=== PATIENT | female | born 1960 | race Caucasian/White ===

== ENCOUNTER 2021-07-04 16:37 | Inpatient (IN) ==
[2021-07-04 17:15] LABS: Basophils # 0.1 10*3/uL (0.0-0.2); Basophils % 0.9 % (0.0-0.8); Eosinophils # 0.5 10*3/uL (0.0-0.87); Eosinophils % 8.4 % (0.00-10.9); Hematocrit 35.5 VOL% (35.7-47.0); Hemoglobin 11.4 GM/DL (12.0-16.0); Immature Granulocytes % 0.3 %; Immature Granulocytes Absolute 0.02 #; Lymphocytes # 2.5 10*3/uL (1.4-4.0); Lymphocytes % 38.4 % (21.3-54.2); Mean Corpuscular HGB Conc 32.1 GM/DL (32-36); Mean Corpuscular Volume 92.9 FL (87-102); Mean Platelet Volume 9.5 FL (9.6-12.0); Monocytes % 8.1 % (1.7-12.7); Neutrophils % 43.9 % (38.7-73.9); Platelet Count 196 T/CUMM (130-400); Red Blood Count 3.82 MC/CUMM (3.8-5.5); Red Cell Distribution Width 13.2 % (9.3-17.3); White Blood Count 6.4 T/CUMM (4-12)
[2021-07-04] MEDS ORDERED: SODIUM CHLORIDE 0.9% 1,000 ML IV STA (17:29)
[2021-07-04] MEDS ORDERED: ALBUTEROL/IPRATROPIUM 3 ML NEB RESP TX STA (17:30)
[2021-07-04 17:35] LABS: Alanine Aminotransferase 18 U/L (13-56); Albumin 3.3 G/DL (3.4-5.0); Alkaline Phosphatase 65 U/L (45-117); Aspartate Amino Transferase 18 U/L (0-37); Bilirubin,Total < 0.39 MG/DL (0.20-1.00); Blood Urea Nitrogen 11 MG/DL (7-18); Calcium 8.1 MG/DL (8.5-10.1); Carbon Dioxide 29 MMOL/L (21-32); Estimated Glom Filtration Rate 81 ML/MIN; Glucose 201 MG/DL (74-106); Osmolality,Calculated 281.5 MOS/KG (273-304); Potassium 3.6 MMOL/L (3.5-5.1); Sodium 139 MMOL/L (136-145); Total Protein 6.3 G/DL (6.4-8.2)
[2021-07-04 17:40] LABS: PT Patient Result 11.4 SECS (10.5-12.0); Partial Thromboplastin Time 25.8 SECS (23.8-32.1)
[2021-07-04 17:52] LABS: Bilirubin,Urine Negative (Negative); Blood, Urine Negative (Negative); Glucose,Urine (UA) Negative (Negative); Hyaline Casts,Urine 1 /LPF (0-3); Ketones,Urine Negative (Negative); Mucus,Urine Occasional /LPF (Occasional); Nitrite,Urine Negative (Negative); Protein,Urine Negative; RBC,Urine 3 /HPF (0-4); Urine Appearance CLEAR (Clear); Urine Color Straw (Yellow); Urine Specific Gravity 1.008 (1.001-1.035); Urine Urobilinogen < 2.0 EU/DL (0.2-1.0)
[2021-07-04 18:04] LABS: Barbiturates Screen,Urine Negative (Negative); Benzodiazepines Screen,Urine Positive (Negative); Cannabinoid Screen,Urine Negative (Negative); Opiate Screen,Urine Negative (Negative); Phencyclidine Screen,Urine Negative (Negative)
[2021-07-04 18:06] LABS: ABG Base Excess 3.4 MMOL/L (-2.5-2.5); ABG HCO3 27.4 MMOL/L (20-26); ABG Oxygen Saturation 93.7 % (95-100); ABG PCO2 58.3 MM HG (35-48); ABG PH 7.331 (7.35-7.45); ABG PO2 73.3 MM HG (80-95); ABG TCO2 27.9 MMOL/L (23-27)
[2021-07-04] MEDS ORDERED: ZALEPLON 5 MG CAPSULE PO PRN (19:33)
[2021-07-04] MEDS ORDERED: ACETAMINOPHEN 325 MG TABLET PO PRN (19:33)
[2021-07-04] MEDS ORDERED: ONDANSETRON 4 MG/2 ML VIAL IV PRN (19:33)
[2021-07-04] MEDS ORDERED: PROMETHAZINE 25 MG TABLET PO PRN (19:43)
[2021-07-04] MEDS ORDERED: ENOXAPARIN 40 MG/0.4 ML SYRINGE SUBCUT SCH (20:00)
[2021-07-04] MEDS ORDERED: GLUCAGON 1 MG VIAL IM PRN (21:00)
[2021-07-04] MEDS ORDERED: DEXTROSE 50% 25 GM/50 ML VIAL IV PRN (21:00)
[2021-07-04] MEDS: INSULIN REGULAR 100 UNIT/ML SUBCUT SCH (21:25)
[2021-07-04] MEDS: METOPROLOL TARTRATE 50 MG TABLET PO SCH (21:43)
[2021-07-04] MEDS: DILTIAZEM 60 MG TABLET PO SCH (21:43)
[2021-07-04] MEDS: ROSUVASTATIN 20 MG TABLET PO SCH (21:43)
[2021-07-04] MEDS: GABAPENTIN 400 MG CAPSULE PO SCH (21:43)
[2021-07-04] MEDS: busPIRone 15 MG TABLET PO SCH (21:43)
[2021-07-04] MEDS: HydrOXYzine PAMOATE 25 MG CAPSULE PO SCH (21:44)
[2021-07-04] MEDS: ALBUTEROL/IPRATROPIUM 3 ML NEB RESP TX SCH (23:42)
[2021-07-05] MEDS: ALBUTEROL/IPRATROPIUM 3 ML NEB RESP TX SCH ×3 (07:31→19:27)
[2021-07-05 09:24] LABS: Basophils # 0.1 10*3/uL (0.0-0.2); Basophils % 0.8 % (0.0-0.8); Eosinophils # 0.4 10*3/uL (0.0-0.87); Eosinophils % 7.1 % (0.00-10.9); Hematocrit 41.3 VOL% (35.7-47.0); Immature Granulocytes % 0.3 %; Immature Granulocytes Absolute 0.02 #; Lymphocytes # 1.9 10*3/uL (1.4-4.0); Lymphocytes % 30.6 % (21.3-54.2); Mean Corpuscular HGB Conc 31.5 GM/DL (32-36); Mean Corpuscular Volume 92.8 FL (87-102); Mean Platelet Volume 9.1 FL (9.6-12.0); Monocytes % 7.7 % (1.7-12.7); Neutrophils % 53.5 % (38.7-73.9); Platelet Count 209 T/CUMM (130-400); Red Blood Count 4.45 MC/CUMM (3.8-5.5); Red Cell Distribution Width 13.2 % (9.3-17.3); White Blood Count 6.2 T/CUMM (4-12)
[2021-07-05] MEDS: INSULIN REGULAR 100 UNIT/ML SUBCUT SCH ×4 (09:30→21:46)
[2021-07-05 09:44] LABS: Albumin 3.7 G/DL (3.4-5.0); Bilirubin,Total 0.5 MG/DL (0.20-1.00); Calcium 9.7 MG/DL (8.5-10.1); Osmolality,Calculated 277.7 MOS/KG (273-304); Potassium 4.5 MMOL/L (3.5-5.1); Total Protein 7.9 G/DL (6.4-8.2)
[2021-07-05] MEDS: METOPROLOL TARTRATE 50 MG TABLET PO SCH ×2 (10:40→21:47)
[2021-07-05] MEDS: ASPIRIN EC 81 MG TABLET PO SCH (10:41)
[2021-07-05] MEDS: busPIRone 15 MG TABLET PO SCH ×3 (10:41→21:47)
[2021-07-05] MEDS: ESCITALOPRAM 10 MG TABLET PO SCH (10:42)
[2021-07-05] MEDS: predniSONE 20 MG TABLET PO SCH (10:42)
[2021-07-05] MEDS: PANTOPRAZOLE 40 MG TABLET PO SCH (10:42)
[2021-07-05] MEDS: HydrOXYzine PAMOATE 25 MG CAPSULE PO SCH ×3 (10:43→21:46)
[2021-07-05] MEDS: ENOXAPARIN 40 MG/0.4 ML SYRINGE SUBCUT SCH (10:49)
[2021-07-05] MEDS: GABAPENTIN 400 MG CAPSULE PO SCH ×3 (10:49→21:47)
[2021-07-05] MEDS: NON-FORMULARY MEDICATION INH SCH (10:50)
[2021-07-05] MEDS: DILTIAZEM 60 MG TABLET PO SCH ×2 (11:01→21:46)
[2021-07-05] MEDS: cephALEXin 500 MG CAPSULE PO SCH ×2 (12:45→21:46)
[2021-07-05] MEDS: NICOTINE 21 MG/24 HR PATCH TRANSDERM SCH (15:14)
[2021-07-05] MEDS: ROSUVASTATIN 20 MG TABLET PO SCH (21:47)
[2021-07-06] MEDS: ALBUTEROL/IPRATROPIUM 3 ML NEB RESP TX SCH ×3 (00:55→13:20)
[2021-07-06] MEDS: NON-FORMULARY MEDICATION INH SCH ×2 (01:14→10:03)
[2021-07-06 04:29] LABS: Basophils % 0.4 % (0.0-0.8); Eosinophils % 0.1 % (0.00-10.9); Hematocrit 34.1 VOL% (35.7-47.0); Hemoglobin 11.2 GM/DL (12.0-16.0); Immature Granulocytes % 0.5 %; Immature Granulocytes Absolute 0.04 #; Lymphocytes # 1.1 10*3/uL (1.4-4.0); Lymphocytes % 14.9 % (21.3-54.2); Mean Corpuscular HGB Conc 32.8 GM/DL (32-36); Mean Corpuscular Volume 91.2 FL (87-102); Mean Platelet Volume 9.8 FL (9.6-12.0); Monocytes % 6.4 % (1.7-12.7); Neutrophils % 77.7 % (38.7-73.9); Platelet Count 215 T/CUMM (130-400); Red Blood Count 3.74 MC/CUMM (3.8-5.5); White Blood Count 7.6 T/CUMM (4-12)
[2021-07-06 04:53] LABS: Calcium 8.7 MG/DL (8.5-10.1); Osmolality,Calculated 281.5 MOS/KG (273-304)
[2021-07-06] MEDS: HydrOXYzine PAMOATE 25 MG CAPSULE PO SCH (08:24)
[2021-07-06] MEDS: PANTOPRAZOLE 40 MG TABLET PO SCH (08:24)
[2021-07-06] MEDS: cephALEXin 500 MG CAPSULE PO SCH (08:24)
[2021-07-06] MEDS: DILTIAZEM 60 MG TABLET PO SCH (08:24)
[2021-07-06] MEDS: predniSONE 20 MG TABLET PO SCH (08:25)
[2021-07-06] MEDS: METOPROLOL TARTRATE 50 MG TABLET PO SCH (08:25)
[2021-07-06] MEDS: ASPIRIN EC 81 MG TABLET PO SCH (08:25)
[2021-07-06] MEDS: GABAPENTIN 400 MG CAPSULE PO SCH (08:25)
[2021-07-06] MEDS: ESCITALOPRAM 10 MG TABLET PO SCH (08:25)
[2021-07-06] MEDS: busPIRone 15 MG TABLET PO SCH (08:25)
[2021-07-06] MEDS: ENOXAPARIN 40 MG/0.4 ML SYRINGE SUBCUT SCH (08:27)
[2021-07-06] MEDS: INSULIN REGULAR 100 UNIT/ML SUBCUT SCH ×2 (08:27→13:35)
[2021-07-06] MEDS: NICOTINE 21 MG/24 HR PATCH TRANSDERM SCH (08:28)
[2021-07-06] MEDS ORDERED: BUDESONIDE/FORMOTEROL 160-4.5 INHALER 6 GM INH SCH (12:00)
[2021-07-06 12:12] VITALS: BP 116/66
== END 2021-07-06 15:10 | disposition home health service (06) | DRG 191 ==
LOC: EDUNIT# → EDBD → N.ED 16:37 → N.EDINP 21:01 → SUATTDRO 21:01 → N.5E 07-05 15:26
PROVIDERS: ADMIT Internal Medicine; ATTEND Family Medicine